=== PATIENT | female | born 1945 | race Caucasian/White ===

== ENCOUNTER → 2023-12-24 11:11 | Outpatient (REF) | payer MEDICARE, BC, SELFPAY | LOC: HWRAD 11:11 | PROVIDERS: ATTENDING PHYSICIAN Internal Medicine Cardiovascular Disease; FAMILY PHYSICIAN Family Medicine Adult Medicine | DX: I25.42 Coronary artery dissection (principal) | CPT/HCPCS: 70496; 70498; 71275; Q9967 ==

== ENCOUNTER → 2024-01-03 09:17 | Outpatient (REF) | payer MEDICARE, BC, SELFPAY | LOC: HWRAD 09:17 | PROVIDERS: ATTENDING PHYSICIAN Internal Medicine Cardiovascular Disease; FAMILY PHYSICIAN Family Medicine Adult Medicine | DX: I25.42 Coronary artery dissection (principal) | CPT/HCPCS: 75635; Q9967 ==